=== PATIENT | male | born 1965 | race African-American/Black ===

== ENCOUNTER 2022-02-01 09:00 | Observation (INO) ==
[2022-01-25 16:57] LABS: Basophils # 0.1 10*3/uL (0.0-0.2); Eosinophils # 0.1 10*3/uL (0.0-0.87); Eosinophils % 1.8 % (0.00-10.9); Hematocrit 42.5 VOL% (42.0-52.0); Hemoglobin 13.7 GM/DL (14.0-18.0); Immature Granulocytes % 0.2 %; Immature Granulocytes Absolute 0.01 #; Lymphocytes # 1.8 10*3/uL (1.4-4.0); Lymphocytes % 30.2 % (21.2-54.2); Mean Corpuscular HGB Conc 32.2 GM/DL (32-36); Mean Corpuscular Volume 71.8 FL (87-102); Mean Platelet Volume 11.5 FL (9.6-12.0); Monocytes # 0.5 10*3/uL (0.11-0.8); Monocytes % 8.3 % (1.7-12.7); Neutrophils % 58.5 % (38.7-73.9); Platelet Count 225 T/CUMM (130-400); Red Blood Count 5.92 MC/CUMM (3.8-5.5); Red Cell Distribution Width 16.2 % (9.3-17.3); White Blood Count 6.1 T/CUMM (4-12)
[2022-01-25 17:21] LABS: Albumin 3.9 G/DL (3.4-5.0); Bilirubin,Total 0.5 MG/DL (0.20-1.00); Calcium 8.8 MG/DL (8.5-10.1); Potassium 4.1 MMOL/L (3.5-5.1); Total Protein 7.6 G/DL (6.4-8.2)
[~2022-02-01 09:00] MED LIST: ALVIMOPAN 12 MG CAPSULE PO ONE; cefTRIAXone 1,000 MG in SODIUM CHLORIDE 0.9% 100 ML IV ONE
[2022-02-01] MEDS: LACTATED RINGERS 1,000 ML IV SCH ×2 (10:00→21:43)
[2022-02-01] MEDS ORDERED: GABAPENTIN 400 MG CAPSULE PO ONE (10:25)
[2022-02-01] MEDS ORDERED: DIAZEPAM 5 MG TABLET PO ONE (10:25)
[2022-02-01] MEDS ORDERED: FAMOTIDINE 20 MG TABLET PO ONE (10:25)
[2022-02-01] MEDS ORDERED: ACETAMINOPHEN 500 MG TABLET PO ONE (10:25)
[2022-02-01] MEDS ORDERED: fentaNYL 100 MCG/2 ML VIAL ONE (12:12)
[2022-02-01] MEDS ORDERED: propofoL 200 MG/20 ML VIAL IV ONE ×2 (13:09→14:13)
[2022-02-01] MEDS ORDERED: LIDOCAINE 2% 5 ML VIAL ONE (13:09)
[2022-02-01] MEDS ORDERED: ROCURONIUM 50 MG/5 ML VIAL IV ONE (13:09)
[2022-02-01] MEDS ORDERED: DESFLURANE 1 UNIT/15 MINUTE INH ONE (13:09)
[2022-02-01] MEDS ORDERED: PHENYLEPHRINE 1 MG/10 ML SYRINGE IV ONE (13:19)
[2022-02-01] MEDS ORDERED: NEOSTIGMINE 10 MG/10 ML VIAL ONE (13:49)
[2022-02-01] MEDS ORDERED: GLYCOPYRROLATE 0.4 MG/2 ML VIAL ONE (13:49)
[2022-02-01] MEDS ORDERED: ROPIVACAINE 0.5% 30 ML VIAL ONE (13:52)
[2022-02-01] MEDS ORDERED: KETOROLAC 30 MG/1 ML VIAL ONE (13:54)
[2022-02-01] MEDS ORDERED: TISSUE ADHESIVE 1 EACH APPLICATOR TOP ONE (14:05)
[2022-02-01] MEDS ORDERED: diphenhydrAMINE 50 MG/1 ML VIAL IV PRN (14:14)
[2022-02-01] MEDS ORDERED: ONDANSETRON 4 MG/2 ML VIAL IV PRN (14:14)
[2022-02-01] MEDS ORDERED: LACTULOSE 20 GM/30 ML UDCUP PO PRN (14:14)
[2022-02-01] MEDS ORDERED: HYDROmorphone 1 MG/1 ML SYRINGE IV PRN (14:14)
[2022-02-01] MEDS ORDERED: oxyCODONE/ACETAMINOPHEN 5-325 MG TABLET PO PRN (14:14)
[2022-02-01] MEDS ORDERED: PROMETHAZINE 25 MG/1 ML VIAL IM PRN (14:14)
[2022-02-01] MEDS ORDERED: SIMETHICONE CHEW 125 MG TABLET PO PRN (14:14)
[2022-02-01 14:44] LABS: Bacteria,Urine Occasional /HPF (Few); Bilirubin,Urine Negative (Negative); Blood, Urine Negative (Negative); Glucose,Urine (UA) Negative (Negative); Ketones,Urine Negative (Negative); Mucus,Urine Occasional /LPF (Occasional); Nitrite,Urine Negative (Negative); Protein,Urine Negative (Negative); RBC,Urine 2 /HPF (0-4); Urine Appearance CLEAR (Clear); Urine Color Straw (Yellow); Urine Specific Gravity 1.011 (1.001-1.035); Urine Urobilinogen < 2.0 eU/dL (<2.0)
[2022-02-01] MEDS: SODIUM CHLORIDE 0.9% 1,000 ML IV SCH (15:55)
[2022-02-01] MEDS: ACETAMINOPHEN 325 MG TABLET PO SCH ×3 (17:20→23:53)
[2022-02-01] MEDS: TAMSULOSIN 0.4 MG CAPSULE PO SCH (20:30)
[2022-02-01] MEDS: DOCUSATE SODIUM 100 MG CAPSULE PO SCH (20:30)
[2022-02-02] MEDS: SODIUM CHLORIDE 0.9% 1,000 ML IV SCH ×2 (00:40→10:12)
[2022-02-02] MEDS: ACETAMINOPHEN 325 MG TABLET PO SCH ×2 (06:05→12:02)
[2022-02-02 08:22] VITALS: BP 136/83
[2022-02-02] MEDS ORDERED: ROSUVASTATIN 20 MG TABLET PO SCH (09:00)
[2022-02-02] MEDS: TAMSULOSIN 0.4 MG CAPSULE PO SCH (09:33)
[2022-02-02] MEDS: DOCUSATE SODIUM 100 MG CAPSULE PO SCH (09:33)
[2022-02-02] MEDS ORDERED: cefTRIAXone 1,000 MG in SODIUM CHLORIDE 0.9% 100 ML IV SCH (10:30)
== END 2022-02-02 12:04 | disposition home or self-care (01) ==
LOC: INTOOBSV 09:24 → N.SDSINP 09:24 → N.3E 15:53
PROVIDERS: ADMIT Surgery; ATTEND Surgery